=== PATIENT | male | born 1950 | race Caucasian/White ===

== ENCOUNTER 2016-11-01 16:43 | Observation (INO) | payer MEDICARE, OTHER ==
[2016-11-01 17:14] LABS: BASOPHILS 0.8 % (0.0-2.0); EOSINOPHILS 3.4 % (0.0-6.0); HEMATOCRIT 50.1 % (42.0-54.0); HEMOGLOBIN 17.3 g/dL (14.0-18.0); LYMPHOCYTES 19.4 % (20.0-40.0); LYMPHOCYTES# 1.6 X 10^3uL (0.8-3.8); MEAN CORPUS. HGB CONCENTRATION 34.6 g/dL (32.0-36.0); MEAN CORPUSCULAR HEMOGLOBIN 32.6 pg (29.0-35.0); MEAN PLATELET VOLUME 8.2 fL (7.4-10.4); MONOCYTES 6.7 % (2.0-10.0); NEUTROPHILS 69.7 % (54.0-75.0); NEUTROPHILS# 5.9 X 10^3uL (2.6-6.7); PLATELET COUNT 205 X 10^3uL (130-440); RED BLOOD COUNT 5.31 X 10^6uL (4.20-6.10); RED CELL DISTRIBUTION WIDTH 12.8 % (11.5-14.5); WHITE BLOOD COUNT 8.5 X 10^3uL (3.9-10.7)
[2016-11-01 17:15] LABS: BASOPHIL# 0.1 X 10^3uL (0.0-0.1); EOSINOPHILS# 0.3 X 10^3uL (0.0-0.4); MONOCYTES# 0.6 X 10^3uL (0.2-1.0)
[2016-11-01 17:21] LABS: ALBUMIN 4.4 g/dL (3.5-5.0); ALKALINE PHOSPHATASE 65 U/L (38-126); ALT 44 U/L (21-72); AST 27 U/L (17-59); BILIRUBIN, DIRECT 0.3 mg/dL (0.0-0.4); BILIRUBIN, TOTAL 0.7 mg/dL (0.2-1.3); BLOOD UREA NITROGEN 24 mg/dL (9-20); CALCIUM 10.4 mg/dL (8.4-10.2); CHLORIDE 102 mmol/L (98-107); EST GLOMERULAR FILTRATION RATE > 60 mL/min; GLUCOSE 125 mg/dL (70-100); LIPASE 34 U/L (23-300); POTASSIUM 4.4 mmol/L (3.5-5.1); SODIUM 140 mmol/L (137-145); TOTAL PROTEIN 7.9 g/dL (6.3-8.2)
[2016-11-01] MEDS ORDERED: ONDANSETRON HCL 4 MG/2 ML VIAL ONE (17:21)
[2016-11-01] MEDS ORDERED: LIDOCAINE VISCOUS 2% 15 ML UDC ONE (18:13)
[2016-11-01] MEDS ORDERED: TETRACAINE/BENZOCAINE/BUTAMBEN 1 SPRAY CAN TOPICAL ONE (18:13)
--- NOTE | 2016-11-01 18:29 | CT REPORT ---
HISTORY: Abdominal pain and nausea. History of small bowel resection. COMPARISON: April 17, 2015 TECHNIQUE: This examination was performed using automated exposure control, adjustment of mA or kV according to patient size, and/or use of iterative reconstruction technique. Multiple contiguous axial images were obtained from the lung bases through the pubic symphysis following administration of intravenous con trast. 100cc Isovue 300 and contrast. FINDINGS: There is minimal stranding in the dependent portions of both lower lobes. This may represent scarring versus atelectasis. No confluent infiltrate. No pneumothorax or pleural effusion. The heart is not e nlarged. No pericardial effusion. There is atherosclerotic calcification of the aortic root. Abdomen/pelvis: There is a 6 mm circumscribed hypoattenuating nodule in the anterior aspect of the ri ght lobe liver in segment 8. Due to small size it is difficult to characterize. Density of 17 Hounsfi eld units is most suggestive of benign process such as cyst. The gallbladder is unremarkable, there is no cholelithiasis or pericholecystic fluid. The spleen is normal in appearance. There is no pancreatic mass or ductal dilatation. The adrenal glands are unremarkable. The configura tion and enhancement of the kidneys are within normal limits. There is no hydronephrosis. No mass. Stomach is distended. There are multiple distended small bowel loops which are fluid-filled with scat tered air-fluid levels. The terminal ileum is decompressed. The colon is decompressed. Findings are c onsistent with distal small bowel structures and. Transition point appears to be in the right lower q uadrant of the abdomen. Postoperative changes of previous small bowel surgery noted with anastomotic staple line in the right lower quadrant. Is no free air or pneumatosis. No significant free fluid is noted. There is no mesenteric edema or inflammatory process. Vascular structures of the abdomen and pelvis are unremarkable. There is no periaortic or retroperitoneal adenopathy. Pelvis demonstrates small amount of free fluid. There is no mass or adenopathy. Incidental note is ma de of subcutaneous air in the inguinal regions bilaterally tracking along the spermatic cord. This ma y be secondary to the patient's recent abdominal surgery on 10/26/2016. IMPRESSION: 1. Distal small bowel obstruction with a transition point in the right lower quadrant. 2. Postoperative changes of previous distal small bowel surgery. 3. There is free fluid in the dependent portion of the pelvis no free air. 4. There is air within the inguinal canals bilaterally which is probably the sequelae of recent abdom inal surgery on 10/26/2018. Critical results were communicated to DEE DEE SANTOS at 11/01/2016 6:27 PM. Final Electronic Signature: This report was electronically signed by Ernesto Baig MD on 11/01/2016 6: 27 PM. [facility] /
[2016-11-01] MEDS ORDERED: HOME MEDICATION LIST NEEDED 1 EA EACH MC ONE (19:00)
[2016-11-01] MEDS ORDERED: ONDANSETRON HCL 4 MG/2 ML VIAL IV PRN (19:15)
--- NOTE | 2016-11-01 19:16 | ER PHYSICIAN DOCUMENTATION ---
Physician Documentation [facility] Name:Truong Rico Age:66 yrs Sex:Male :1950 Arrival Date:11/01/2016 Time:16:43 Bed4 Private MD:Nirmal Daniel ED, John Disposition: 11/01/16 18:43 Admit ordered for Calin Barrow. Preliminary diagnosis is Bowel Obstruction. - Bed requested for Medical/Surgical. - Condition is Fair. - Problem is new. - Symptoms are unchanged. 23 HR OBS Yes HPI: 11/01 17:44 This 66 yrs old Male presents to ER via Private Vehicle with complaints of jm Abdominal Pain, Post Surgical Pain. 17:44 The patient presents with abdominal pain in the epigastric area, that is diffuse. jm Onset: The symptoms/episode began/occurred today. The symptoms do not radiate. Associated signs and symptoms: Pertinent positives: distention . The symptoms are described as dull. Modifying factors: the symptoms are aggravated by pressure. Severity of pain: in the emergency department the pain is a 7 / 10. The patient has not experienced similar symptoms in the past. 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 Pt got out of [facility] 3 days ago. Today, his abdomen started to get distended. He did have a BM, but he is worried. Historical: - Allergies: No known drug Allergies; - Home Meds: 1. nebivolol 2.5 mg oral tab once 2. lisinopril 2.5 mg oral tab 1 tab once daily 3. rosuvastatin 10 mg oral tab 1 tab once daily 4. sertraline oral 5. CoQ-10 100 mg oral cap daily - PMHx: ATRIAL FIB; HYPERTENSION; vertigo; small bowl resection; - PSHx: ablation; - Tetanus: < 10 years. - Ebola Screening: : Patient denies exposure to infectious person. Patient denies travel to an Ebola-affected area in the 21 days before illness onset. . - Social history: Smoking status: Patient states was never smoker of tobacco. Patient uses alcohol but reports only rare drinking. Patient/guardian denies using marijuana. ROS: 17:28 Constitutional: Negative for fatigue, fever. jm 17:28 Abdomen/GI: Positive for abdominal pain, nausea, abdominal distension. 17:28 All other systems are negative. Exam: 17:52 Constitutional: The patient appears alert, awake. 17:52 Eyes: Periorbital structures: appear normal, Extraocular movements: intact throughout. 17:52 ENT: Mouth: is normal, Voice: is normal. 17:52 Neck: Thyroid: appears normal, Trachea: is midline with no obvious abnormalities. 17:52 Cardiovascular: Rate: normal, Rhythm: regular. 17:52 Respiratory: Respirations: normal, Breath sounds: are normal. 17:52 Abdomen/GI: Inspection: distension, Bowel sounds: absent, Palpation: moderate abdominal tenderness, in the epigastric area and right lower quadrant. 17:52 Musculoskeletal/extremity: DVT Exam: No signs of deep vein thrombosis. Calves: are non-tender, have equal circumference. 17:52 Skin: Appearance: Color: no rash present. 17:52 Neuro: Mentation: is normal, Memory: is normal. 17:52 Psych: Behavior/mood is pleasant, cooperative, Affect is calm. Vital Signs: 17:04 BP 122 / 88; Pulse 87; Resp 18; Temp 98.6; Pulse Ox 96% on R/A; Pain 7/10; st 17:26 Pain 3/10; st 18:58 BP 121 / 85; Pulse 77; Resp 18; Pulse Ox 96% ; bw2 MDM: 16:46 Patient medically screened. 17:54 Differential diagnosis: bowel obstruction. Data reviewed: vital signs, nurses notes, old medical records, lab test result(s), radiologic studies, and as a result, I will. 18:39 Counseling: I had a detailed discussion with the patient and/or guardian regarding: the historical points, exam findings, and any diagnostic results supporting the discharge/admit diagnosis, lab results, radiology results, the need for further work-up and treatment in the hospital. Medication response: The patient's symptoms have improved, Dilaudid. Response to treatment: the patient's symptoms have markedly improved after treatment. Physician consultation: Calin Barrow MD regarding admission, and will see patient immediately, later today. ED course: Pt w SBO. NG dropped w immediate 1L out. I spoke w Dr. Velez, his surgeon in [place], who is ok w pt staying in . Dr. Barrow will admit. . 11/01 17:33 Order name: BASIC METABOLIC PANEL; Complete Time: 17:48 EDMS 11/01 17:33 Order name: HEPATIC PANEL; Complete Time: 17:48 EDMS 11/01 17:33 Order name: LIPASE; Complete Time: 17:48 EDMS 11/01 17:36 Order name: CBC AUTO DIF, MDIF/RMOR IF IND; Complete Time: 17:48 EDMS 11/02 06:25 Order name: BASIC METABOLIC PANEL EDMS 11/02 07:07 Order name: CBC W/ MANUAL DIFFERENTIAL EDMS 11/03 08:15 Order name: BASIC METABOLIC PANEL EDMS 11/03 08:15 Order name: MAGNESIUM EDMS 11/01 18:33 Order name: CAT SCAN; ABD/PEL W [id number] EDMS 11/01 17:03 Order name: NPO; Complete Time: 17:11 11/01 17:26 Order name: Oxygen; Complete Time: 17:26 st Dispensed Medications: 17:11 Drug: Zofran 4 mg; Route: IVP; Infused Over: 2 mins; Site: left antecubital; st 17:26 Follow up: Response: Nausea is decreased st 17:11 Drug: Dilaudid 1 mg; Route: IVP; Site: left antecubital; st 17:26 Follow up: Response: Pain is decreased st 17:11 Drug: NS 0.9% 1000 ml; Route: IV; Rate: bolus; Site: left antecubital; st 18:50 Follow up: IV Status: Completed infusion; IV Intake: 1000ml st Signatures: Emily Conklin RN RN st Meyer, John, MD MD jm Wisely, [facility]
--- NOTE | 2016-11-01 19:16 | ER NURSING DOCUMENTATION ---
Nurse's Notes [facility] Name:Truong Rico Age:66 yrs Sex:Male :1950 Arrival Date:11/01/2016 Time:16:43 Bed4 Private MD:Nirmal Daniel Diagnosis:Bowel Obstruction Presentation: 11/01 16:47 Acuity: IHRA 3 rh 16:55 Presenting complaint: Patient states: pt had a double small bowl resection on October. pt was released Sunday and feeling good with pain levels around 2-3 and regular BMs Last night pat started to feel bloated. He did have a BM this AM that was hard. Since then he has continued to feel bloated pain has increased and he is nauseated. When asked if he was passing gas he stated no. Transition of care: Home. 16:55 Method Of Arrival: Private Vehicle Triage Assessment: 17:00 General: Appears uncomfortable, Behavior is cooperative. Pain: Complains of pain in st abdomen Pain currently is 7 out of 10 on a pain scale. Pain began gradually, getting worst since last night. Cardiovascular: No deficits noted. Respiratory: No deficits noted. GI: Abdomen is distended, Last BM was November 01, 2016. Bowel sounds diminished in right upper quadrant, left upper quadrant, right lower quadrant and left lower quadrant Guarding noted X 4 quads. Reports bloating, constipation, nausea. Injury Description: pt has an incision on the abd that looks to be healing well except for a small separation about 1 cm in length at the lower end. no signs of infection. Historical: - Allergies: No known drug Allergies; - Home Meds: 1. nebivolol 2.5 mg oral tab once 2. lisinopril 2.5 mg oral tab 1 tab once daily 3. rosuvastatin 10 mg oral tab 1 tab once daily 4. sertraline oral 5. CoQ-10 100 mg oral cap daily - PMHx: ATRIAL FIB; HYPERTENSION; vertigo; small bowl resection; - PSHx: ablation; - Tetanus: < 10 years. - Ebola Screening: : Patient denies exposure to infectious person. Patient denies travel to an Ebola-affected area in the 21 days before illness onset. . - Social history: Smoking status: Patient states was never smoker of tobacco. Patient uses alcohol but reports only rare drinking. Patient/guardian denies using marijuana. Screenin:05 Infectious Disease Risk None. Abuse screen: Denies threats or abuse. Denies injuries st from another. pt feels safe at home. Nutritional screening: No deficits noted. Vital Signs: 17:04 BP 122 / 88; Pulse 87; Resp 18; Temp 98.6; Pulse Ox 96% on R/A; Pain 7/10; st 17:26 Pain 3/10; st 18:58 BP 121 / 85; Pulse 77; Resp 18; Pulse Ox 96% ; bw2 ED Course: 16:44 Patient arrived in ED. ama 16:45 Nirmal Daniel MD is Private Physician. ama 16:46 Sage Ware MD is Attending Physician. damion 16:47 Triage completed. rh 16:55 Emily Conklin, RN is Primary Nurse. st 16:58 Inserted peripheral IV: 20 gauge in left antecubital area and blood collected. rh 17:05 Valuables Remains with patient Patient has correct armband on for positive st identification. Placed in gown. Bed in low position. Pulse Ox - RN Monitoring Only NIBP On - RN Monitoring Only. Warm blanket given. 17:26 Oxygen Oxygen administration via nasal cannula @ 2L/min. st 17:[address] christopher 18:05 Patient moved back from [address]. christopher 18:31 NGT inserted 18 Fr. via right nares. Placement verified. Returned gastric contents. to st intermittent suction. 18:42 Calin Barrow MD is Admitting Physician. damion Administered Medications: 17:11 Drug: Zofran 4 mg; Route: IVP; Infused Over: 2 mins; Site: left antecubital; st 17:26 Follow up: Response: Nausea is decreased st 17:11 Drug: Dilaudid 1 mg; Route: IVP; Site: left antecubital; st 17:26 Follow up: Response: Pain is decreased st 17:11 Drug: NS 0.9% 1000 ml; Route: IV; Rate: bolus; Site: left antecubital; st 18:50 Follow up: IV Status: Completed infusion; IV Intake: 1000ml st Intake: 18:50 IV: 1000ml; Total: 1000ml. st Output: 18:41 Gastric: 1000ml (NGT); Total: 1000ml. st Outcome: 18:43 Decision to Admit by Provider. damion 18:58 Admitted to Med/surg accompanied by nurse, via stretcher. bw2 18:58 Condition: good 18:58 Discharge Assessment: Patient awake, alert and oriented x 3. No cognitive and/or functional deficits noted. Patient verbalized understanding of disposition instructions. 19:15 Instructed on need to admit bw2 19:15 Patient left the ED. bw2 Signatures: Emily Conklin, Sage Avendaño RN, MD MD jm Abbott, Glynn Miller Reg Reg ama Hofsess, Keily Hongh bw2
[2016-11-01] MEDS ORDERED: BENZOCAINE/MENTHOL 1 EACH LOZENGE PO PRN (19:20)
[2016-11-01] MEDS: LACTATED RINGERS 1,000 ML IV SCH (20:07)
[2016-11-01] MEDS: LIDOCAINE VISCOUS 2% 15 ML UDC PO PRN (23:31)
[2016-11-02] MEDS: LACTATED RINGERS 1,000 ML IV SCH (05:10)
[2016-11-02 06:08] LABS: BLOOD UREA NITROGEN 23 mg/dL (9-20); CALCIUM 9.1 mg/dL (8.4-10.2); CHLORIDE 105 mmol/L (98-107); EST GLOMERULAR FILTRATION RATE > 60 mL/min; GLUCOSE 99 mg/dL (70-100); POTASSIUM 4.1 mmol/L (3.5-5.1); SODIUM 141 mmol/L (137-145)
[2016-11-02 07:05] LABS: HEMATOCRIT 46.2 % (42.0-54.0); HEMOGLOBIN 15.4 g/dL (14.0-18.0); LYMPHOCYTE % (Manual) 20 % (20.0-40.0); MEAN CORPUS. HGB CONCENTRATION 33.3 g/dL (32.0-36.0); MEAN CORPUSCULAR HEMOGLOBIN 31.8 pg (29.0-35.0); NEUTROPHIL % (Manual) 73 % (54.0-75.0); PLATELET COUNT 202 X 10^3uL (130-440); RED BLOOD COUNT 4.83 X 10^6uL (4.20-6.10); WHITE BLOOD COUNT 8.2 X 10^3uL (3.9-10.7)
[2016-11-02 07:06] LABS: BASOPHIL % (Manual) 0 % (0.0-2.0); EOSINOPHIL % (Manual) 2 % (0.0-6.0); MONOCYTE % (Manual) 5 % (2.0-10.0); PLATELET ESTIMATE ADEQUATE
[2016-11-02] MEDS: LIDOCAINE VISCOUS 2% 15 ML UDC PO PRN ×2 (08:06→21:12)
--- NOTE | 2016-11-02 09:03 | PROGRESS NOTE: IM APSO ---
Assessment and Plan - Date of Encounter Date of Encounter: 11/02/16 (1) Partial small bowel obstruction Status: Acute Assessment and plan: recent surgery[facility], now ngt decompression, replace ng output, ppi, consider dulcolax supp. ambulation. surgery already evaluated and managing conservatively. 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 Assessment and plan: pathology pending at [facility] Current Visit: Yes (3) Atrial fibrillation Status: Acute Assessment and plan: rate controlled and anticoagulated, will hold with recent surgery, no melena/ hematochezia but may need surgery if obst not open/alleviated with conservative management 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 Status: Acute Current Visit: Yes (5) Hypertension Status: Acute Current Visit: Yes (6) Coronary artery disease Status: Acute Current Visit: Yes - Time Spent With Patient Total time spent with greater than 50% in coordination of care (as documented) at patient's floor/unit and/or counseling patient: 25 - 35 minutes IM: PN Subjective General: no fatigue, no good appetite, no fever, no chills Cardiovascular: no chest pain, no chest pressure Respiratory: no cough Gastrointestinal: abdominal pain, bloating, nausea, vomiting, no diarrhea, no flatus Musculoskeletal: no pain Integumentary: no rashes (66 yo gentleman with CAD s/p cath 2010 w/ 20% LAD, Afib ablated twice, on warfarin/neviblock, now s/p small bowel resection wiht Dr. Velez at [facility] for robable carcinoid. Last nocte n/v/ap though bm's, seen in ER and partial SBO, NGT 1.5 liters output then this morning andother 300+ml. Overall feels better, no flatus but feels bowels starting to move.) IM: PN Objective Exam - I&O/Vital Signs I&O: Intake & Output 11/01/16 11/02/16 11/02/16 21:59 05:59 13:59 Intake Total 1500 Output Total 275 Balance 1225 Weight 98.43 kg 98.43 kg Intake: IV 1500 Left Antecubital 1500 Oral 0 Output: Urine 275 Other: Urine Appearance Clear Urine Color Light Gloria Stool Characteristics Formed Voiding Method Urinal Vital Signs: Last Vital Signs Temp 36.6 C 11/02/16 05:49 Pulse 83 11/02/16 05:49 Resp 16 11/02/16 05:49 BP 122/83 11/02/16 05:49 Pulse Ox 95 11/02/16 05:49 Oxygen Flow Rate 2 Oxygen Delivery Method Nasal Cannula - Constitutional General appearance: Present: average body habitus - Head Head exam: Present: atraumatic - Eye Eye exam: Present: normal appearance - ENT ENT exam: Present: mucous membranes moist - Respiratory Respiratory exam: Present: clear - Cardiovascular Cardiovascular exam: Present: RRR - GI/Abdominal GI/Abdominal exam: Present: hypoactive bowel sounds, soft, tenderness (largely right lower quadrant and flank) - Extremities Exam Extremities exam: Absent: edema - Lab Labs: Laboratory Last Values WBC 8.2 X 10^3uL (3.9-10.7) 11/02/16 05:10 RBC 4.83 X 10^6uL (4.20-6.10) 11/02/16 05:10 Hgb 15.4 g/dL (14.0-18.0) 11/02/16 05:10 Hct 46.2 % (42.0-54.0) 11/02/16 05:10 MCV 96.0 fL (80.0-100.0) 11/02/16 05:10 MCH 31.8 pg (29.0-35.0) 11/02/16 05:10 MCHC 33.3 g/dL (32.0-36.0) 11/02/16 05:10 RDW Not Reportable 11/02/16 05:10 Plt Count 202 X 10^3uL (130-440) 11/02/16 05:10 MPV Not Reportable 11/02/16 05:10 Total Counted 100 11/02/16 05:10 Neutrophils % 69.7 % (54.0-75.0) 11/01/16 17:00 Neutrophils % (Manual) 73 % (54.0-75.0) 11/02/16 05:10 Lymphocytes % 19.4 % (20.0-40.0) L 11/01/16 17:00 Lymphocytes % (Manual) 20 % (20.0-40.0) 11/02/16 05:10 Monocytes % (Manual) 5 % (2.0-10.0) 11/02/16 05:10 Eosinophils % 3.4 % (0.0-6.0) 11/01/16 17:00 Eosinophils % (Manual) 2 % (0.0-6.0) 11/02/16 05:10 Basophils % 0.8 % (0.0-2.0) 11/01/16 17:00 Basophils % (Manual) 0 % (0.0-2.0) 11/02/16 05:10 Neutrophils # 5.9 X 10^3uL (2.6-6.7) 11/01/16 17:00 Lymphocytes # 1.6 X 10^3uL (0.8-3.8) 11/01/16 17:00 Monocytes 6.7 % (2.0-10.0) 11/01/16 17:00 Monocytes # 0.6 X 10^3uL (0.2-1.0) 11/01/16 17:00 Eosinophils # 0.3 X 10^3uL (0.0-0.4) 11/01/16 17:00 Basophils # 0.1 X 10^3uL (0.0-0.1) 11/01/16 17:00 Platelet Estimate Adequate 11/02/16 05:10 Sodium 141 mmol/L (137-145) 11/02/16 05:10 Potassium 4.1 mmol/L (3.5-5.1) 11/02/16 05:10 Chloride 105 mmol/L (98-107) 11/02/16 05:10 Carbon Dioxide 25 mmol/L (22-30) 11/02/16 05:10 BUN 23 mg/dL (9-20) H 11/02/16 05:10 Creatinine 0.8 mg/dL (0.7-1.3) 11/02/16 05:10 GFR Calculation > 60 mL/min 11/02/16 05:10 Glucose 99 mg/dL (70-100) 11/02/16 05:10 Calcium 9.1 mg/dL (8.4-10.2) 11/02/16 05:10 Total Bilirubin 0.7 mg/dL (0.2-1.3) 11/01/16 17:00 Direct Bilirubin 0.3 mg/dL (0.0-0.4) 11/01/16 17:00 AST 27 U/L (17-59) 11/01/16 17:00 ALT 44 U/L (21-72) 11/01/16 17:00 Alkaline Phosphatase 65 U/L (38-126) 11/01/16 17:00 Total Protein 7.9 g/dL (6.3-8.2) D 11/01/16 17:00 Albumin 4.4 g/dL (3.5-5.0) 11/01/16 17:00 Lipase 34 U/L (23-300) 11/01/16 17:00 Quality Questions - VTE Prophylaxis Assessment VTE Present on Admission?: No Patient at risk for venous thromboembolism?: Yes VTE Risk Level: Moderate Risk Pharmaceutical VTE prophylaxis contraindication reason: N/A- VTE prophylaxsis ordered Mechanical VTE prophylaxis contraindication reason: N/A- VTE prophylaxsis ordered (5) Hypertension Qualifiers: Hypertension type: essential hypertension Qualified Code(s): I10 - Essential (primary) hypertension (6) Coronary artery disease Qualifiers: [place] vs. transplanted heart: [place] heart Associated angina: without angina
--- NOTE | 2016-11-02 10:08 | PROGRESS NOTE:General Surgery ---
Assessment and Plan - Date of Encounter Date of Encounter: 11/02/16 (1) Postoperative ileus Status: Acute Assessment and plan: The patient was admitted last night with a small bowel obstruction/ileus pattern noted following recent small bowel resection. So far NGT drainage is at about 2 liters. The tube did not function last night and he noted some discomfort. Ng is working now. Will continue with suctioning. Current Visit: Yes - Time Spent With Patient Total time spent with greater than 50% in coordination of care (as documented) at patient's floor/unit and/or counseling patient: LORETO: Gen Surg PN Subjective Patient reports: afebrile, bowel movement, feels better, no fever, no flatus, no still having pain LORETO: Gen Surgery PN Obj Exam - Latest Vital Signs and I&O Latest Vital Signs/I&O: Vital Signs Temp 36.6 C 11/02/16 05:49 Pulse 83 11/02/16 05:49 Resp 16 11/02/16 05:49 BP 122/83 11/02/16 05:49 Pulse Ox 95 11/02/16 05:49 Intake & Output 11/01/16 11/02/16 11/02/16 17:59 05:59 17:59 Intake Total 1500 Output Total 275 Balance 1225 Weight 98.43 kg Intake: IV 1500 Left Antecubital 1500 Oral 0 Output: Urine 275 Other: Urine Appearance Clear Urine Color Light Gloria Stool Characteristics Formed Voiding Method Urinal - Exam General physical exam: no distress, no pain Abdomen exam: bowel sounds (present but hypoactive), wound (seperation in lower wound but okay otherwise.) - Lab Labs: Laboratory Last Values WBC 8.2 X 10^3uL (3.9-10.7) 11/02/16 05:10 RBC 4.83 X 10^6uL (4.20-6.10) 11/02/16 05:10 Hgb 15.4 g/dL (14.0-18.0) 11/02/16 05:10 Hct 46.2 % (42.0-54.0) 11/02/16 05:10 MCV 96.0 fL (80.0-100.0) 11/02/16 05:10 MCH 31.8 pg (29.0-35.0) 11/02/16 05:10 MCHC 33.3 g/dL (32.0-36.0) 11/02/16 05:10 RDW Not Reportable 11/02/16 05:10 Plt Count 202 X 10^3uL (130-440) 11/02/16 05:10 MPV Not Reportable 11/02/16 05:10 Total Counted 100 11/02/16 05:10 Neutrophils % 69.7 % (54.0-75.0) 11/01/16 17:00 Neutrophils % (Manual) 73 % (54.0-75.0) 11/02/16 05:10 Lymphocytes % 19.4 % (20.0-40.0) L 11/01/16 17:00 Lymphocytes % (Manual) 20 % (20.0-40.0) 11/02/16 05:10 Monocytes % (Manual) 5 % (2.0-10.0) 11/02/16 05:10 Eosinophils % 3.4 % (0.0-6.0) 11/01/16 17:00 Eosinophils % (Manual) 2 % (0.0-6.0) 11/02/16 05:10 Basophils % 0.8 % (0.0-2.0) 11/01/16 17:00 Basophils % (Manual) 0 % (0.0-2.0) 11/02/16 05:10 Neutrophils # 5.9 X 10^3uL (2.6-6.7) 11/01/16 17:00 Lymphocytes # 1.6 X 10^3uL (0.8-3.8) 11/01/16 17:00 Monocytes 6.7 % (2.0-10.0) 11/01/16 17:00 Monocytes # 0.6 X 10^3uL (0.2-1.0) 11/01/16 17:00 Eosinophils # 0.3 X 10^3uL (0.0-0.4) 11/01/16 17:00 Basophils # 0.1 X 10^3uL (0.0-0.1) 11/01/16 17:00 Platelet Estimate Adequate 11/02/16 05:10 Sodium 141 mmol/L (137-145) 11/02/16 05:10 Potassium 4.1 mmol/L (3.5-5.1) 11/02/16 05:10 Chloride 105 mmol/L (98-107) 11/02/16 05:10 Carbon Dioxide 25 mmol/L (22-30) 11/02/16 05:10 BUN 23 mg/dL (9-20) H 11/02/16 05:10 Creatinine 0.8 mg/dL (0.7-1.3) 11/02/16 05:10 GFR Calculation > 60 mL/min 11/02/16 05:10 Glucose 99 mg/dL (70-100) 11/02/16 05:10 Calcium 9.1 mg/dL (8.4-10.2) 11/02/16 05:10 Total Bilirubin 0.7 mg/dL (0.2-1.3) 11/01/16 17:00 Direct Bilirubin 0.3 mg/dL (0.0-0.4) 11/01/16 17:00 AST 27 U/L (17-59) 11/01/16 17:00 ALT 44 U/L (21-72) 11/01/16 17:00 Alkaline Phosphatase 65 U/L (38-126) 11/01/16 17:00 Total Protein 7.9 g/dL (6.3-8.2) D 11/01/16 17:00 Albumin 4.4 g/dL (3.5-5.0) 11/01/16 17:00 Lipase 34 U/L (23-300) 11/01/16 17:00 Quality Questions - VTE Prophylaxis Assessment VTE Present on Admission?: No Patient at risk for venous thromboembolism?: Yes VTE Risk Level: Moderate Risk Pharmaceutical VTE prophylaxis contraindication reason: not indicated Mechanical VTE prophylaxis contraindication reason: N/A- VTE prophylaxsis ordered
[2016-11-02] MEDS: ENALAPRILAT DIHYDRATE 1.25 MG/ML VIAL IV SCH ×3 (10:12→21:11)
[2016-11-02] MEDS ORDERED: PHENOL SPRAY 1 SPRAY/ML BTL MUCOUS MEM PRN (12:58)
[2016-11-02] MEDS ORDERED: LACTATED RINGERS 1,000 ML BAG IV ONE (16:24)
[2016-11-02] MEDS ORDERED: NA PHOS,M-B/NA PHOS,DI-BA 133 ML BTL RECTAL PRN (16:33)
[2016-11-02] MEDS ORDERED: BISACODYL 10 MG SUPP.RECT RECTAL PRN (16:34)
[2016-11-02] MEDS: LORazepam 2 MG/ML INJ IV PRN (21:11)
[2016-11-02] MEDS: ROSUVASTATIN CALCIUM 20 MG TABLET PO SCH (21:11)
[2016-11-02] MEDS: SERTRALINE HCL 50 MG TABLET PO SCH (21:11)
[2016-11-03] MEDS: ENALAPRILAT DIHYDRATE 1.25 MG/ML VIAL IV SCH (03:43)
[2016-11-03] MEDS: LACTATED RINGERS 1,000 ML IV SCH (05:09)
[2016-11-03 08:11] LABS: BLOOD UREA NITROGEN 20 mg/dL (9-20); CALCIUM 8.9 mg/dL (8.4-10.2); EST GLOMERULAR FILTRATION RATE > 60 mL/min; GLUCOSE 93 mg/dL (70-100); SODIUM 138 mmol/L (137-145)
[2016-11-03 08:15] LABS: POTASSIUM 4.1 mmol/L (3.5-5.1)
--- NOTE | 2016-11-03 08:22 | PROGRESS NOTE:General Surgery ---
Assessment and Plan - Date of Encounter Date of Encounter: 11/03/16 (1) Postoperative ileus Status: Resolved Assessment and plan: Patient and his nasogastric tube clamped 3 hours and suction for now overnight. He was comfortable did not have any discomfort in pes planus. His nasogastric tube is therefore been. We will try a clear liquid diet and hopefully discharge him tomorrow. Current Visit: Yes - Time Spent With Patient Total time spent with greater than 50% in coordination of care (as documented) at patient's floor/unit and/or counseling patient: LORETO: Gen Surg PN Subjective Patient reports: afebrile, bowel movement, feels better, flatus, other ( tolerated NGT clamping.), no fever, no still having pain LORETO: Gen Surgery PN Obj Exam - Latest Vital Signs and I&O Latest Vital Signs/I&O: Vital Signs Temp 37.1 C 11/03/16 06:31 Pulse 84 11/03/16 06:31 Resp 22 11/02/16 22:42 BP 126/75 11/03/16 06:31 Pulse Ox 91 11/03/16 06:31 Intake & Output 11/02/16 11/03/16 11/03/16 17:59 05:59 17:59 Intake Total 240 1600 Output Total 500 1700 Balance -260 -100 Intake: IV 1600 Left Antecubital 1600 Oral 240 Output: Gastric Drainage 1500 Urine 500 Stool 200 Other: Urine Appearance Clear Clear Urine Color Straw Straw Stool Characteristics Formed Formed Voiding Method Urinal Toilet # Bowel Movements 1 - Exam Abdomen exam: bowel sounds (more active this a.m.), soft, distended (improved.) , wound (seperation in lower wound but okay otherwise.) - Lab Labs: Laboratory Last Values WBC 8.2 X 10^3uL (3.9-10.7) 11/02/16 05:10 RBC 4.83 X 10^6uL (4.20-6.10) 11/02/16 05:10 Hgb 15.4 g/dL (14.0-18.0) 11/02/16 05:10 Hct 46.2 % (42.0-54.0) 11/02/16 05:10 MCV 96.0 fL (80.0-100.0) 11/02/16 05:10 MCH 31.8 pg (29.0-35.0) 11/02/16 05:10 MCHC 33.3 g/dL (32.0-36.0) 11/02/16 05:10 RDW Not Reportable 11/02/16 05:10 Plt Count 202 X 10^3uL (130-440) 11/02/16 05:10 MPV Not Reportable 11/02/16 05:10 Total Counted 100 11/02/16 05:10 Neutrophils % 69.7 % (54.0-75.0) 11/01/16 17:00 Neutrophils % (Manual) 73 % (54.0-75.0) 11/02/16 05:10 Lymphocytes % 19.4 % (20.0-40.0) L 11/01/16 17:00 Lymphocytes % (Manual) 20 % (20.0-40.0) 11/02/16 05:10 Monocytes % (Manual) 5 % (2.0-10.0) 11/02/16 05:10 Eosinophils % 3.4 % (0.0-6.0) 11/01/16 17:00 Eosinophils % (Manual) 2 % (0.0-6.0) 11/02/16 05:10 Basophils % 0.8 % (0.0-2.0) 11/01/16 17:00 Basophils % (Manual) 0 % (0.0-2.0) 11/02/16 05:10 Neutrophils # 5.9 X 10^3uL (2.6-6.7) 11/01/16 17:00 Lymphocytes # 1.6 X 10^3uL (0.8-3.8) 11/01/16 17:00 Monocytes 6.7 % (2.0-10.0) 11/01/16 17:00 Monocytes # 0.6 X 10^3uL (0.2-1.0) 11/01/16 17:00 Eosinophils # 0.3 X 10^3uL (0.0-0.4) 11/01/16 17:00 Basophils # 0.1 X 10^3uL (0.0-0.1) 11/01/16 17:00 Platelet Estimate Adequate 11/02/16 05:10 Sodium 141 mmol/L (137-145) 11/02/16 05:10 Potassium 4.1 mmol/L (3.5-5.1) 11/02/16 05:10 Chloride 105 mmol/L (98-107) 11/02/16 05:10 Carbon Dioxide 25 mmol/L (22-30) 11/02/16 05:10 BUN 23 mg/dL (9-20) H 11/02/16 05:10 Creatinine 0.8 mg/dL (0.7-1.3) 11/02/16 05:10 GFR Calculation > 60 mL/min 11/02/16 05:10 Glucose 99 mg/dL (70-100) 11/02/16 05:10 Calcium 9.1 mg/dL (8.4-10.2) 11/02/16 05:10 Total Bilirubin 0.7 mg/dL (0.2-1.3) 11/01/16 17:00 Direct Bilirubin 0.3 mg/dL (0.0-0.4) 11/01/16 17:00 AST 27 U/L (17-59) 11/01/16 17:00 ALT 44 U/L (21-72) 11/01/16 17:00 Alkaline Phosphatase 65 U/L (38-126) 11/01/16 17:00 Total Protein 7.9 g/dL (6.3-8.2) D 11/01/16 17:00 Albumin 4.4 g/dL (3.5-5.0) 11/01/16 17:00 Lipase 34 U/L (23-300) 11/01/16 17:00
--- NOTE | 2016-11-03 08:58 | PROGRESS NOTE: IM APSO ---
Assessment and Plan - Date of Encounter Date of Encounter: 11/03/16 (1) Partial small bowel obstruction Status: Acute Assessment and plan: rf/u path, conservative Rx, clear advance slowly. 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 Status: Acute Current Visit: Yes (5) Hypertension Status: Acute Current Visit: Yes (6) Coronary artery disease Status: Acute Current Visit: Yes - Time Spent With Patient Total time spent with greater than 50% in coordination of care (as documented) at patient's floor/unit and/or counseling patient: 16-24 minutes Estimated anticipated discharge: 1 day IM: PN Subjective General: no fatigue, no good appetite, no fever, no chills Cardiovascular: no chest pain, no chest pressure Respiratory: no cough Gastrointestinal: abdominal pain, bloating, diarrhea (loose BM this morning, no cramping, ngt clamped and tolerated then DC'd), no nausea, no vomiting, no flatus Musculoskeletal: no pain Integumentary: no rashes (66 yo gentleman with CAD s/p cath 2010 w/ 20% LAD, Afib ablated twice, on warfarin/neviblock, 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 Last nocte n/v/ap though bm's, seen in ER and partial SBO, NGT 1.5 liters output then this morning andother 300+ml. Overall feels better, no flatus but feels bowels starting to move.) IM: PN Objective Exam - I&O/Vital Signs I&O: Intake & Output 11/02/16 11/03/16 11/03/16 21:59 05:59 13:59 Intake Total 240 1600 Output Total 1500 700 Balance -1260 900 Intake: IV 1600 Left Antecubital 1600 Oral 240 Output: Gastric Drainage 1000 500 Urine 500 Stool 200 Other: Urine Appearance Clear Urine Color Straw Stool Characteristics Formed Voiding Method Urinal Toilet # Bowel Movements 1 Vital Signs: Last Vital Signs Temp 37.1 C 11/03/16 06:31 Pulse 84 11/03/16 06:31 Resp 22 11/02/16 22:42 BP 126/75 11/03/16 06:31 Pulse Ox 94 11/03/16 08:24 Oxygen Flow Rate 1 Oxygen Delivery Method Room Air - Constitutional General appearance: Present: average body habitus - Head Head exam: Present: atraumatic - Eye Eye exam: Present: normal appearance - ENT ENT exam: Present: mucous membranes moist - Respiratory Respiratory exam: Present: clear - Cardiovascular Cardiovascular exam: Present: RRR - GI/Abdominal GI/Abdominal exam: Present: normal bowel sounds, soft, tenderness (largely right lower quadrant and flank) - Extremities Exam Extremities exam: Absent: edema - Lab Labs: Laboratory Last Values WBC 8.2 X 10^3uL (3.9-10.7) 11/02/16 05:10 RBC 4.83 X 10^6uL (4.20-6.10) 11/02/16 05:10 Hgb 15.4 g/dL (14.0-18.0) 11/02/16 05:10 Hct 46.2 % (42.0-54.0) 11/02/16 05:10 MCV 96.0 fL (80.0-100.0) 11/02/16 05:10 MCH 31.8 pg (29.0-35.0) 11/02/16 05:10 MCHC 33.3 g/dL (32.0-36.0) 11/02/16 05:10 RDW Not Reportable 11/02/16 05:10 Plt Count 202 X 10^3uL (130-440) 11/02/16 05:10 MPV Not Reportable 11/02/16 05:10 Total Counted 100 11/02/16 05:10 Neutrophils % 69.7 % (54.0-75.0) 11/01/16 17:00 Neutrophils % (Manual) 73 % (54.0-75.0) 11/02/16 05:10 Lymphocytes % 19.4 % (20.0-40.0) L 11/01/16 17:00 Lymphocytes % (Manual) 20 % (20.0-40.0) 11/02/16 05:10 Monocytes % (Manual) 5 % (2.0-10.0) 11/02/16 05:10 Eosinophils % 3.4 % (0.0-6.0) 11/01/16 17:00 Eosinophils % (Manual) 2 % (0.0-6.0) 11/02/16 05:10 Basophils % 0.8 % (0.0-2.0) 11/01/16 17:00 Basophils % (Manual) 0 % (0.0-2.0) 11/02/16 05:10 Neutrophils # 5.9 X 10^3uL (2.6-6.7) 11/01/16 17:00 Lymphocytes # 1.6 X 10^3uL (0.8-3.8) 11/01/16 17:00 Monocytes 6.7 % (2.0-10.0) 11/01/16 17:00 Monocytes # 0.6 X 10^3uL (0.2-1.0) 11/01/16 17:00 Eosinophils # 0.3 X 10^3uL (0.0-0.4) 11/01/16 17:00 Basophils # 0.1 X 10^3uL (0.0-0.1) 11/01/16 17:00 Platelet Estimate Adequate 11/02/16 05:10 Sodium 138 mmol/L (137-145) 11/03/16 06:15 Potassium 4.1 mmol/L (3.5-5.1) 11/03/16 06:15 Chloride Not Reportable 11/03/16 06:15 Carbon Dioxide 28 mmol/L (22-30) 11/03/16 06:15 BUN 20 mg/dL (9-20) 11/03/16 06:15 Creatinine 0.6 mg/dL (0.7-1.3) L 11/03/16 06:15 GFR Calculation > 60 mL/min 11/03/16 06:15 Glucose 93 mg/dL (70-100) 11/03/16 06:15 Calcium 8.9 mg/dL (8.4-10.2) 11/03/16 06:15 Magnesium 2.0 mg/dL (1.6-2.3) 11/03/16 06:15 Total Bilirubin 0.7 mg/dL (0.2-1.3) 11/01/16 17:00 Direct Bilirubin 0.3 mg/dL (0.0-0.4) 11/01/16 17:00 AST 27 U/L (17-59) 11/01/16 17:00 ALT 44 U/L (21-72) 11/01/16 17:00 Alkaline Phosphatase 65 U/L (38-126) 11/01/16 17:00 Total Protein 7.9 g/dL (6.3-8.2) D 11/01/16 17:00 Albumin 4.4 g/dL (3.5-5.0) 11/01/16 17:00 Lipase 34 U/L (23-300) 11/01/16 17:00 (5) Hypertension Qualifiers: Hypertension type: essential hypertension Qualified Code(s): I10 - Essential (primary) hypertension (6) Coronary artery disease Qualifiers: [place] vs. transplanted heart: [place] heart Associated angina: without angina
[2016-11-03] MEDS ORDERED: SERTRALINE HCL 50 MG TABLET PO SCH (09:00)
[2016-11-03] MEDS ORDERED: NEBIVOLOL HCL 10 MG TABLET PO SCH ×4 (09:00→21:00)
[2016-11-03] MEDS ORDERED: LACTATED RINGERS 1,000 ML IV SCH ×2 (09:00)
[2016-11-03 09:05] LABS: CHLORIDE 101 mmol/L (98-107)
[2016-11-03] MEDS: LISINOPRIL 5 MG TABLET PO SCH (09:16)
[2016-11-03 19:39] VITALS: RESP 16
[2016-11-03] MEDS: ROSUVASTATIN CALCIUM 20 MG TABLET PO SCH (20:35)
[2016-11-03] MEDS: SERTRALINE HCL 50 MG TABLET PO SCH (20:35)
[2016-11-03] MEDS: LORazepam 2 MG/ML INJ IV PRN (22:09)
[2016-11-03 22:27] VITALS: BP 133/86; PULSE 70; TEMP 99.1
--- NOTE | 2016-11-04 07:51 | PROGRESS NOTE:General Surgery ---
Assessment and Plan - Date of Encounter Date of Encounter: 11/04/16 (1) Postoperative ileus Status: Resolved Assessment and plan: Pt doing well this am. Discussed diet and limitations in activity, and he understands. Reviewed wound care. He is doing well now, and ileus appears resolved. Will discharge home, with zofran prn, and follow up with his surgeon of next week as appointed Current Visit: Yes - Time Spent With Patient Total time spent with greater than 50% in coordination of care (as documented) at patient's floor/unit and/or counseling patient: 16-24 minutes Estimated anticipated discharge: today LORETO: Gen Surg PN Subjective Patient reports: afebrile, bowel movement (yesterday), feels better, flatus, no new complaints, tolerating a regular diet (but some nausea after dinner. Resolved in a short time), other (tolerated NGT clamping.), no fever, no still having pain LORETO: Gen Surgery PN Obj Exam - Latest Vital Signs and I&O Latest Vital Signs/I&O: Vital Signs Temp 37.3 C 11/03/16 22:25 Pulse 70 11/03/16 22:25 Resp 16 11/03/16 22:25 BP 133/86 11/03/16 22:25 Pulse Ox 90 11/03/16 22:25 Intake & Output 11/03/16 11/04/16 11/04/16 17:59 05:59 17:59 Intake Total 950 420 Output Total 700 800 Balance 250 -380 Intake: IV 20 Left Antecubital 20 Oral 950 400 Output: Urine 700 800 Other: Urine Appearance Clear Urine Color Straw Voiding Method Toilet Urinal - Exam General physical exam: well developed, well nourished, no distress Respiratory exam: normal respiratory effort Abdomen exam: bowel sounds, soft, wound (clean, dry and intact. No signs of infection noted) Hernia: none - Lab Labs: Laboratory Last Values WBC 8.2 X 10^3uL (3.9-10.7) 11/02/16 05:10 RBC 4.83 X 10^6uL (4.20-6.10) 11/02/16 05:10 Hgb 15.4 g/dL (14.0-18.0) 11/02/16 05:10 Hct 46.2 % (42.0-54.0) 11/02/16 05:10 MCV 96.0 fL (80.0-100.0) 11/02/16 05:10 MCH 31.8 pg (29.0-35.0) 11/02/16 05:10 MCHC 33.3 g/dL (32.0-36.0) 11/02/16 05:10 RDW Not Reportable 11/02/16 05:10 Plt Count 202 X 10^3uL (130-440) 11/02/16 05:10 MPV Not Reportable 11/02/16 05:10 Total Counted 100 11/02/16 05:10 Neutrophils % 69.7 % (54.0-75.0) 11/01/16 17:00 Neutrophils % (Manual) 73 % (54.0-75.0) 11/02/16 05:10 Lymphocytes % 19.4 % (20.0-40.0) L 11/01/16 17:00 Lymphocytes % (Manual) 20 % (20.0-40.0) 11/02/16 05:10 Monocytes % (Manual) 5 % (2.0-10.0) 11/02/16 05:10 Eosinophils % 3.4 % (0.0-6.0) 11/01/16 17:00 Eosinophils % (Manual) 2 % (0.0-6.0) 11/02/16 05:10 Basophils % 0.8 % (0.0-2.0) 11/01/16 17:00 Basophils % (Manual) 0 % (0.0-2.0) 11/02/16 05:10 Neutrophils # 5.9 X 10^3uL (2.6-6.7) 11/01/16 17:00 Lymphocytes # 1.6 X 10^3uL (0.8-3.8) 11/01/16 17:00 Monocytes 6.7 % (2.0-10.0) 11/01/16 17:00 Monocytes # 0.6 X 10^3uL (0.2-1.0) 11/01/16 17:00 Eosinophils # 0.3 X 10^3uL (0.0-0.4) 11/01/16 17:00 Basophils # 0.1 X 10^3uL (0.0-0.1) 11/01/16 17:00 Platelet Estimate Adequate 11/02/16 05:10 Sodium 138 mmol/L (137-145) 11/03/16 06:15 Potassium 4.1 mmol/L (3.5-5.1) 11/03/16 06:15 Chloride 101 mmol/L (98-107) 11/03/16 06:15 Carbon Dioxide 28 mmol/L (22-30) 11/03/16 06:15 BUN 20 mg/dL (9-20) 11/03/16 06:15 Creatinine 0.6 mg/dL (0.7-1.3) L 11/03/16 06:15 GFR Calculation > 60 mL/min 11/03/16 06:15 Glucose 93 mg/dL (70-100) 11/03/16 06:15 Calcium 8.9 mg/dL (8.4-10.2) 11/03/16 06:15 Magnesium 2.0 mg/dL (1.6-2.3) 11/03/16 06:15 Total Bilirubin 0.7 mg/dL (0.2-1.3) 11/01/16 17:00 Direct Bilirubin 0.3 mg/dL (0.0-0.4) 11/01/16 17:00 AST 27 U/L (17-59) 11/01/16 17:00 ALT 44 U/L (21-72) 11/01/16 17:00 Alkaline Phosphatase 65 U/L (38-126) 11/01/16 17:00 Total Protein 7.9 g/dL (6.3-8.2) D 11/01/16 17:00 Albumin 4.4 g/dL (3.5-5.0) 11/01/16 17:00 Lipase 34 U/L (23-300) 11/01/16 17:00 Quality Questions - VTE Prophylaxis Assessment VTE Present on Admission?: No Patient at risk for venous thromboembolism?: No VTE Risk Level: Very Low Risk Pharmaceutical VTE prophylaxis contraindication reason: not indicated Mechanical VTE prophylaxis contraindication reason: not indicated
[2016-11-04] MEDS ORDERED: FLUTICASONE NASAL 120 SPRAY BTL NASAL PRN (07:58)
[2016-11-04] MEDS ORDERED: SILDENAFIL CITRATE 50 MG PO PRN (07:58)
[2016-11-04] MEDS ORDERED: CO Q10 100 MG PO SCH (09:00)
[2016-11-04] MEDS ORDERED: LISINOPRIL 5 MG TABLET PO SCH (09:00)
[2016-11-04] MEDS ORDERED: MULTIVITAMINS THERAPEUTIC 1 TABLET PO SCH (09:00)
[2016-11-04] MEDS: LISINOPRIL 5 MG TABLET PO SCH (09:14)
--- NOTE | 2016-11-04 10:12 | PROGRESS NOTE: IM APSO ---
Assessment and Plan - Date of Encounter Date of Encounter: 11/04/16 (1) Partial small bowel obstruction Status: Acute Assessment and plan: f/u path, conservative Rx, tolerating diet and stooling. Spoke about low residue diet/soluble and insoluble fiber. 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 Also recommend resuming warfarin though patient wishes to discuss with Dr. Duong on Sunday. 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 Status: Acute Current Visit: Yes (5) Hypertension Status: Acute Assessment and plan: controlled on usual medications Current Visit: Yes (6) Coronary artery disease Status: Acute Assessment and plan: resume outpatient meds including baby ASA as above Current Visit: Yes - Time Spent With Patient Total time spent with greater than 50% in coordination of care (as documented) at patient's floor/unit and/or counseling patient: less than 15 minutes Estimated anticipated discharge: today IM: PN Subjective General: no fatigue, no good appetite, no fever, no chills Cardiovascular: no chest pain, no chest pressure Respiratory: no cough Gastrointestinal: diarrhea (semiformed BM and tolerated regular diet (eggs/arceo ) spoke about low residue diet/soluble/insoluble fiber), no abdominal pain, no bloating, no nausea, no vomiting, no flatus Musculoskeletal: no pain Integumentary: no rashes (66 yo gentleman with CAD s/p cath 2011 w/ 20% LAD, Afib ablated twice, on warfarin/neviblock, 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 Last nocte n/v/ap though bm's, seen in ER and partial SBO, NGT 1.5 liters output then this morning andother 300+ml. Overall feels better, no flatus but feels bowels starting to move.) IM: PN Objective Exam - I&O/Vital Signs I&O: Intake & Output 11/03/16 11/04/16 11/04/16 21:59 05:59 13:59 Intake Total 950 420 Output Total 700 800 Balance 250 -380 Intake: IV 20 Left Antecubital 20 Oral 950 400 Output: Urine 700 800 Other: Voiding Method Urinal Vital Signs: Last Vital Signs Temp 37.3 C 11/03/16 22:25 Pulse 70 11/03/16 22:25 Resp 16 11/03/16 22:25 BP 133/86 11/03/16 22:25 Pulse Ox 90 11/03/16 22:25 Oxygen Flow Rate 1 Oxygen Delivery Method Room Air - Constitutional General appearance: Present: average body habitus - Head Head exam: Present: atraumatic - Eye Eye exam: Present: normal appearance - ENT ENT exam: Present: mucous membranes moist - Extremities Exam Extremities exam: Absent: edema - Lab Labs: Laboratory Last Values WBC 8.2 X 10^3uL (3.9-10.7) 11/02/16 05:10 RBC 4.83 X 10^6uL (4.20-6.10) 11/02/16 05:10 Hgb 15.4 g/dL (14.0-18.0) 11/02/16 05:10 Hct 46.2 % (42.0-54.0) 11/02/16 05:10 MCV 96.0 fL (80.0-100.0) 11/02/16 05:10 MCH 31.8 pg (29.0-35.0) 11/02/16 05:10 MCHC 33.3 g/dL (32.0-36.0) 11/02/16 05:10 RDW Not Reportable 11/02/16 05:10 Plt Count 202 X 10^3uL (130-440) 11/02/16 05:10 MPV Not Reportable 11/02/16 05:10 Total Counted 100 11/02/16 05:10 Neutrophils % 69.7 % (54.0-75.0) 11/01/16 17:00 Neutrophils % (Manual) 73 % (54.0-75.0) 11/02/16 05:10 Lymphocytes % 19.4 % (20.0-40.0) L 11/01/16 17:00 Lymphocytes % (Manual) 20 % (20.0-40.0) 11/02/16 05:10 Monocytes % (Manual) 5 % (2.0-10.0) 11/02/16 05:10 Eosinophils % 3.4 % (0.0-6.0) 11/01/16 17:00 Eosinophils % (Manual) 2 % (0.0-6.0) 11/02/16 05:10 Basophils % 0.8 % (0.0-2.0) 11/01/16 17:00 Basophils % (Manual) 0 % (0.0-2.0) 11/02/16 05:10 Neutrophils # 5.9 X 10^3uL (2.6-6.7) 11/01/16 17:00 Lymphocytes # 1.6 X 10^3uL (0.8-3.8) 11/01/16 17:00 Monocytes 6.7 % (2.0-10.0) 11/01/16 17:00 Monocytes # 0.6 X 10^3uL (0.2-1.0) 11/01/16 17:00 Eosinophils # 0.3 X 10^3uL (0.0-0.4) 11/01/16 17:00 Basophils # 0.1 X 10^3uL (0.0-0.1) 11/01/16 17:00 Platelet Estimate Adequate 11/02/16 05:10 Sodium 138 mmol/L (137-145) 11/03/16 06:15 Potassium 4.1 mmol/L (3.5-5.1) 11/03/16 06:15 Chloride 101 mmol/L (98-107) 11/03/16 06:15 Carbon Dioxide 28 mmol/L (22-30) 11/03/16 06:15 BUN 20 mg/dL (9-20) 11/03/16 06:15 Creatinine 0.6 mg/dL (0.7-1.3) L 11/03/16 06:15 GFR Calculation > 60 mL/min 11/03/16 06:15 Glucose 93 mg/dL (70-100) 11/03/16 06:15 Calcium 8.9 mg/dL (8.4-10.2) 11/03/16 06:15 Magnesium 2.0 mg/dL (1.6-2.3) 11/03/16 06:15 Total Bilirubin 0.7 mg/dL (0.2-1.3) 11/01/16 17:00 Direct Bilirubin 0.3 mg/dL (0.0-0.4) 11/01/16 17:00 AST 27 U/L (17-59) 11/01/16 17:00 ALT 44 U/L (21-72) 11/01/16 17:00 Alkaline Phosphatase 65 U/L (38-126) 11/01/16 17:00 Total Protein 7.9 g/dL (6.3-8.2) D 11/01/16 17:00 Albumin 4.4 g/dL (3.5-5.0) 11/01/16 17:00 Lipase 34 U/L (23-300) 11/01/16 17:00 (5) Hypertension Qualifiers: Hypertension type: essential hypertension Qualified Code(s): I10 - Essential (primary) hypertension (6) Coronary artery disease Qualifiers: [place] vs. transplanted heart: [place] heart Associated angina: without angina
[2016-11-04 10:55] VITALS: O2SAT 92
[2016-11-04] MEDS ORDERED: ROSUVASTATIN CALCIUM 20 MG TABLET PO SCH (21:00)
[2016-11-04] MEDS ORDERED: SERTRALINE HCL 50 MG TABLET PO SCH (21:00)
[2016-11-04] MEDS ORDERED: NEBIVOLOL HCL 10 MG TABLET PO SCH (21:00)
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
== END 2016-11-04 10:00 | disposition home or self-care (01) ==
LOC: ER 16:43 → IN 19:16
PROVIDERS: ADMIT Surgery; ATTEND Surgery
DX: K91.3 Postprocedural intestinal obstruction (principal); Y83.8 Other surgical procedures as the cause of abnormal reaction of the patient, or of later complication, without mention of misadventure at the time of the procedure; D3A.098 Benign carcinoid tumors of other sites; I48.2 Chronic atrial fibrillation; I10 Essential (primary) hypertension; I25.10 Atherosclerotic heart disease of native coronary artery without angina pectoris; M54.5 Low back pain; E78.5 Hyperlipidemia, unspecified; Z86.73 Personal history of transient ischemic attack (TIA), and cerebral infarction without residual deficits; Z79.899 Other long term (current) drug therapy
CPT/HCPCS: 36415; 74177; 80048; 80076; 83690; 83735; 85007; 85025; 85027; 94760; 96361; 96374; 96375; 96376; 99217; 99218; 99225; 99226; 99285; G0378; J1170; J2060; J2405; J7120